=== PATIENT | male | born 1935 | race Caucasian/White ===

== ENCOUNTER → 2017-04-27 | Outpatient (CLI) | payer OTHER ==
[~2017-04-27] MED LIST: ASA81BEC PO; LOPRESSOR 50 MG50 M1 PO; LORTAB 7.5/5001 TA3 PO; NO HOME MEDS; PACERONE 200 M200 M1 PO; SIMVASTATIN20 MG PO
--- NOTE | ~2017-04-27 | 2DMMODE ---
[facility] [place] [address] 2 D/M-MODE ECHOCARDIOGRAM Name: CAIT LOCO Room #: REG CL [facility]#: [id number] Admission: 04/27/17 Attend Phys: Rahul Kimball, Discharge: Date of : 39 Date of Service: 04/27/17 0921 Report #: [id number] THIS REPORT FOR: //name// APPROVED REPORT Study performed: 04/27/2017 08:30:54 EXAM: Comprehensive 2D, Doppler, and color-flow Echocardiogram Patient Location: Out-Patient Status: routine BSA: 1.77 HR: 138 bpm BP: 117/83 mmHg Rhythm: Atrial Fibrillation Other Information Study Quality: Good Indications Afib, CAD. Hx: CABG. (Heart rate was between 125-150bpm during exam) 2D Dimensions RVDd: 43.50 mm LVEF(%): 29.48 (>50%) IVSd: 13.04 (7-11mm) LVOT Diam: 21.99 (18-24mm) LVDd: 52.37 mm PWd: 10.06 (7-11mm) Ascending Ao: 35.17 (22-36mm) LVDs: 45.08 (25-40mm) Aortic Root: 40.69 mm Hernandez's LVEF: 29.48 % Volumes Left Atrial Volume (Systole) Single Plane 4CH: 58.32 mL Single Plane 2CH: 80.31 mL LA ESV Index: 43.00 mL/m2 Aortic Valve AoV Peak Jignesh.: 0.97 m/s AO Peak Gr.: 3.81 mmHg LVOT Max P.79 mmHg LVOT Max V: 0.67 m/s COLBY Vmax: 2.61 cm2 Mitral Valve MV Decel. Time: 152.68 ms [facility] [place] [address] 2 D/M-MODE ECHOCARDIOGRAM Name: CAIT LOCO LOTHIAN [facility] [id number] Admission: 04/27/17 Attend Phys: Rahul Kimball, Discharge: Date of : 39 Date of Service: 04/27/17 0921 Report #: [id number] MV E Max Jignesh.: 0.74 m/s Pulmonary Valve PV Peak Jignesh.: 1.00 m/s PV Peak Gr.: 4.12 mmHg Tricuspid Valve TR Peak Jignesh.: 2.58 m/s RAP Estimate: 5.00 mmHg TR Peak Gr.: 26.90 mmHg PA Pressure: 32.00 mmHg Left Ventricle The left ventricle is normal size. Mild septal hypertrophy is present. Left ventricular systolic function is moderate to severely decreased. LVEF is 35%. This study is not technically sufficient to allow evaluation of the LV diastolic function due to atrial fibrillation. Right Ventricle The right ventricle is normal size. Atria Left atrium is moderately dilated. Right atrium is dilated. Aortic Valve Aortic valve leaflets are mildly thickened. Mild aortic regurgitation. There is no aortic valvular stenosis. Mitral Valve Mitral valve leaflets are thickened. Moderate to severe mitral regurgitation No evidence of mitral valve stenosis. Tricuspid Valve The tricuspid valve is normal in structure. Mild to moderate tricuspid regurgitation. Estimated PAP is 30-35mmHg. Pulmonic Valve The pulmonary valve is normal in structure. Mild to moderate pulmonic regurgitation. 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 IVC is normal in size and collapses >50% with inspiration. Pericardium There is no pericardial effusion. [facility] [address] [place] [address] 2 D/M-MODE ECHOCARDIOGRAM Name: CAIT LOCO LOTHIAN Room #: REG CL [facility]#: [id number] Admission: 04/27/17 Attend Phys: Rahul Kimball, Discharge: Date of : 39 Date of Service: 04/27/17920 Report #: [id number] <Conclusion> The left ventricle is normal size. Left ventricular systolic function is moderate to severely decreased. Left atrium is moderately dilated. Right atrium is dilated. Mild aortic regurgitation. Moderate to severe mitral regurgitation Mild to moderate tricuspid regurgitation. Estimated PAP is 30-35mmHg. <ELECTRONICALLY SIGNED> By: Srini Brown MD 04/27/1721 0 0 Srini Brown MD /ERIK
== END ==
LOC: CV 08:17
DX: I08.3 Combined rheumatic disorders of mitral, aortic and tricuspid valves (principal); I48.91 Unspecified atrial fibrillation; I48.3 Typical atrial flutter; I25.10 Atherosclerotic heart disease of native coronary artery without angina pectoris; Z95.1 Presence of aortocoronary bypass graft

== ENCOUNTER → 2017-05-18 | Outpatient (CLI) | payer OTHER | LOC: NUC 07:06 | DX: I25.10 Atherosclerotic heart disease of native coronary artery without angina pectoris (principal); E78.5 Hyperlipidemia, unspecified; I48.91 Unspecified atrial fibrillation; I48.3 Typical atrial flutter ==